=== PATIENT | male | born 1945 | race Caucasian/White ===

== ENCOUNTER 2017-01-21 15:20 | Outpatient (CLI) | payer MEDICARE ==
--- NOTE | 2017-01-21 16:19 | MRI ---
MRI OF LUMBAR SPINE WITHOUT CONTRAST: COMPARISON: None. HISTORY: Low back pain with radiculopathy. Bilateral leg pain radiates to the low back and legs. TECHNIQUE: Multiplanar, multisequence MR images were obtained of the lumbar spine without contrast. FINDINGS: Generalized disk desiccation is seen. There is grade I anterolisthesis of L3 on L4. End plate dege nerative changes are seen surrounding the L3-4 intervertebral disk. The conus medullaris terminates normally at L1. The prevertebral and paraspinal soft tissues are unremarkable. T12-L1: A small disk-osteophyte complex is seen. No posterior facet arthrosis. No neural foramina l or central canal stenosis. L1-2: A small disk-osteophyte complex is seen. Mild to moderate bilateral posterior facet arthrosi s. Mild central canal stenosis. Mild bilateral neural foraminal stenosis. L2-3: A moderate disk-osteophyte complex is seen. Moderate bilateral posterior facet arthrosis. M oderate central canal stenosis. Moderate bilateral neural foraminal stenosis. L3-4: A large disk-osteophyte complex is seen. Severe bilateral posterior facet arthrosis. Severe central canal stenosis. Moderate to severe bilateral neural foraminal stenosis. L4-5: A large disk-osteophyte complex is seen. Mild bilateral posterior facet arthrosis. Moderate central canal stenosis. Moderate bilateral neural foraminal stenosis. L5-S1: A small disk-osteophyte complex is seen. Mild bilateral posterior facet arthrosis. No cent ral canal stenosis. Moderate left and mild right neural foraminal stenosis. IMPRESSION: Degenerative changes of the lumbar spine as above. POS: [facility]
== END 2017-01-21 15:21 | disposition home or self-care (01) ==
LOC: SCSMRI 15:20
PROVIDERS: ATTEND Family Medicine
DX: M47.26 Other spondylosis with radiculopathy, lumbar region (principal)
CPT/HCPCS: 72148

== ENCOUNTER 2017-02-04 17:44 | Emergency (ER) | payer MEDICARE ==
[2017-02-04] MEDS ORDERED: Adacel (T-DAP) 0.5 ML VIAL ONE (18:30)
--- NOTE | 2017-02-04 20:12 | CT ---
CT HEAD WITHOUT IV CONTRAST: Date: 02-04-17 History: Head injury. Comparison: CTA head, 01-06-16. FINDINGS: As noted on the prior exam, there are remote lacunar infarctions involving the basal ganglia bilater ally with greater number of lacunar infarctions on the right, unchanged from prior exam. There is no evidence of an acute cortical infarction, hemorrhage, mass effect, or midline shift. There is ex va cuo dilatation of the anterior horn left lateral ventricle due to remote lacunar infarction in the l eft caudate head. Visualized paranasal sinuses and mastoid air cells are clear. No other interval change. IMPRESSION: 1. No acute intracranial abnormalities demonstrated. 2. Remote lacunar infarctions bilateral basal ganglia including area of prior hemorrhage in the righ t corpus striatum which was noted on prior MRI brain on 12-05-15. POS: [facility]
--- NOTE | 2017-02-09 17:08 | EKG ---
Test Reason : SYNCOPE Blood Pressure : / mmHG Vent. Rate : 075 BPM Atrial Rate : 075 BPM P-R Int : 162 ms QRS Dur : 094 ms QT Int : 404 ms P-R-T Axes : 059 038 029 degrees QTc Int : 451 ms Normal sinus rhythm Normal ECG Confirmed by JEISON HERNANDEZ D.O. ([id number]), advertising editor JESS ABEL ([id number] on 02/09/2017 5:07:40 PM Referred By: MD HERNANDEZ Confirmed By:JEISON HERNANDEZ D.O.
== END 2017-02-04 19:35 | disposition home or self-care (01) ==
LOC: SCSER 17:44
DX: S06.9X9A Unspecified intracranial injury with loss of consciousness of unspecified duration, initial encounter (principal); S01.81XA Laceration without foreign body of other part of head, initial encounter; R55 Syncope and collapse; J45.909 Unspecified asthma, uncomplicated; Z23 Encounter for immunization; W18.30XA Fall on same level, unspecified, initial encounter
CPT/HCPCS: 12013; 70450; 90471; 90715; 93005

== ENCOUNTER 2017-06-14 12:28 | Outpatient (CLI) | payer MEDICARE ==
--- NOTE | 2017-06-14 14:41 | ULT ---
BILATERAL RENAL SONOGRAM: Date: 06/14/17 HISTORY: Renal cyst. Follow-up. COMPARISON: 11/29/16. FINDINGS: Right kidney is 9.7 cm in length. A partially exophytic 1.0 cm cyst projects laterally from the super ior pole and is stable. No hydronephrosis. Left kidney is 10.0 cm. Urinary bladder is unremarkable. IMPRESSION: Stable sonographic appearance of the small right renal cyst. No new abnormalities are demonstrated. POS: [facility]
== END 2017-06-14 12:29 | disposition home or self-care (01) ==
LOC: ULT 12:28
PROVIDERS: ATTEND Family Medicine
DX: N28.89 Other specified disorders of kidney and ureter (principal); N28.1 Cyst of kidney, acquired
CPT/HCPCS: 76770

== ENCOUNTER 2017-09-18 13:56 | Inpatient (IN) | payer MEDICARE ==
[2017-09-18 14:30] LABS: #Basophils 0.1 thou/uL (0.0-0.2); #Eosinphils 0.2 thou/uL (0.0-0.7); #Lymphocytes 1.4 thou/uL (1.20-3.40); #Monocytes 0.4 thou/uL (0.11-0.59); #Neutrophils 2.3 thou/uL (1.40-6.50); %Basophils 1.2 % (0.0-1.0); %Eosinophils 4.4 % (0.0-10.0); %Lymphocytes 31.1 % (21.0-51.0); %Monocytes 9.7 % (0.0-10.0); %Neutrophils 53.6 % (42.0-75.0); Hemoglobin 12.7 g/dL (14.0-18.0); Mean Corpuscular HGB CONC 32.8 g/dL (32.0-36.0); Mean Corpuscular Hemoglobin 29.4 pg (27.0-31.0); Mean Corpuscular Volume 89.5 fl (80.0-94.0); Mean Platelet Volume 6.7 fL (7.4-10.4); Platelet Count 237 thou/uL (130-400); RBC Distribution Width 12.1 % (11.5-14.5); Red Blood Cell (RBC) Count 4.34 mill/uL (4.70-6.10); White Blood Cell (WBC) Count 4.4 thou/uL (4.8-10.8)
[2017-09-18 14:53] LABS: ALT (SGPT) 15 U/L (8-55); AST (SGOT) 16 U/L (5-34); Albumin 4.1 g/dL (3.4-4.8); Alkaline Phosphatase 93 U/L (40-150); Anion Gap 10 mmol/L (10-20); BUN (Urea Nitrogen) 24 mg/dL (8.4-25.7); Bilirubin, Total 0.5 mg/dL (0.2-1.2); Calc. Creatinine Clearance 0 mL/min (70-130); Calcium 9.5 mg/dL (7.8-10.44); Carbon Dioxide 28 mmol/L (23-31); Chloride 106 mmol/L (98-107); Estimated GFR-MDRD 88; Globulin 2.8 g/dL (2.4-3.5); Glucose 100 mg/dL (83-110); Potassium 3.8 mmol/L (3.5-5.1); Protein, Total 6.9 g/dL (5.8-8.1); Sodium 140 mmol/L (136-145)
[2017-09-18 14:57] LABS: Troponin I Less than 0.010 ng/mL (< 0.028)
--- NOTE | 2017-09-18 16:25 | CT ---
CT HEAD WITH AND WITHOUT IV CONTRAST: CT ARTERIOGRAM BRAIN WITH IV CONTRAST AND 3D MIP IMAGING: HISTORY: Altered mental status. Slurred speech. Difficulty writing. COMPARISON: 02/04/2017 FINDINGS: There is no evidence of acute intracranial hemorrhage or infarct. Small areas of old infarct involvi ng the periventricular white matter of each cerebral hemisphere are stable. There is no mass effect, shift of midline structures, or abnormal areas of contrast enhancement. Calcification is apparent w ithin the arterial structures of the brain base. There is good contrast opacification of each internal carotid system and the vertebrobasilar system. The [place] is intact. No focal stenosis or aneurysm is apparent. IMPRESSION: 1. Chronic ischemic small vessel disease appears stable. No acute intracranial abnormalities are de monstrated. 2. Atherosclerosis. POS: [facility]
[2017-09-18 20:03] VITALS: BMI 20.9
[2017-09-18] MEDS ORDERED: Labetalol HCl 100 MG/20 ML VIAL SLOW IVP PRN (21:04)
[2017-09-18] MEDS ORDERED: hydrALAZINE 20 MG/ML VIAL SLOW IVP PRN (21:04)
[2017-09-19 05:12] LABS: Cardiac Risk 6.4 (Less than 4.5)
[2017-09-19] MEDS ORDERED: Prevnar 13-Val Conj/PF 0.5 ML SYRINGE IM ONE (09:00)
[2017-09-19] MEDS ORDERED: Enoxaparin Sodium 30 MG/0.3 ML SYRINGE SC SCH (09:00)
[2017-09-19] MEDS ORDERED: Aspirin 81 mg Enteric Coated Tablet PO SCH ×2 (09:00)
--- NOTE | 2017-09-19 10:28 | ULT ---
CAROTID ULTRASOUND: History: Previous carotid endarterectomy. Questionable stroke. Comparison: None. Technique: Grayscale, color flow, doppler imaging and spectral waveform analysis was performed in the carotid and vertebral arteries. FINDINGS: Right carotid: Intimal thickness of the proximal common carotid artery is 0.14 cm. There is noncalcif ied plaque involving the common carotid arteries, carotid bifurcation and proximal internal carotid a rtery. Peak systolic velocity of the common carotid is 89.9 cm/sec. Peak systolic velocity of the int ernal carotid artery is 84.2 cm/sec. Systolic ICA to CCA is 0.9. Left carotid: Intimal thickness of the proximal common carotid artery is 0.17 cm. There is calcified plaque involving the distal common carotid, carotid bifurcation, and proximal internal carotid artery . There is associated shadowing which limits evaluation. Peak systolic velocity of the common carotid artery is 95.6 cm/sec. Peak systolic velocity of internal carotid is 130.2 cm/sec. Systolic ICA to C CA ratio is 1.4. Antegrade flow in bilateral vertebral arteries. IMPRESSION: Sonographic evidence of moderate (50-69%) stenosis involving the left internal carotid artery. Furthe r evaluation with CT angiogram of the neck is recommended. POS: [facility]
--- NOTE | 2017-09-19 10:53 | MRI ---
BRAIN MRI NONCONTRAST: Date: 09/19/17 Reference made to head CT dated 02/04/17. CLINICAL INDICATION: Stroke. History of carotid endarterectomy. FINDINGS: There is multifocal restriction within the left cerebral hemisphere involving the left caudate nucleu s at the region of the proximal to mid body, as well as involving the left putamen. There is associat ed small area of susceptibility artifact at the posterior left putamen. There is multifocal remote la cunar infarction/dilated perivascular space formation at the bilateral basal ganglia. With regard to component of lacunar infarction, there is chronic hemosiderin staining at the right basal ganglia. Mi ld to moderate chronic microvascular ischemic disease is present involving cerebral white matter. The re is remote lacunar infarction involving right cerebellar hemisphere. IMPRESSION: 1. Small areas of acute infarction centered at the left basal ganglia with associated hemosiderin de position. 2. Mild to moderate chronic microvascular ischemic disease with superimposed remote lacunar infarcti ons and associated hemosiderin staining. POS: [facility]
[2017-09-19 11:52] VITALS: TEMP 97.8
[2017-09-19 15:31] VITALS: BP 116/63
--- NOTE | 2017-09-19 16:46 | PDOC.PN ---
- Subjective Encounter Start Date: 09/19/17 Encounter Start Time: 16:44 Mr. Campos was seen in follow-up of acute CVA. He does not have any complaints this afternoon, and would like to go home. - Objective MAR Reviewed: Yes Vital Signs & Weight: Vital Signs (12 hours) Temp Pulse Resp BP Pulse Ox 09/19/17 15:30 97.8 F 64 16 116/63 96 Result Diagrams: 09/18/17 14:15 09/18/17 14:15 Phys Exam - Physical Examination HEENT: PERRLA Respiratory: no wheezing, no rales, no rhonchi, clear to auscultation bilateral Cardiovascular: RRR, no significant murmur, no rub Gastrointestinal: soft, non-tender, positive bowel sounds Musculoskeletal: no edema Dx/Plan (1) Acute CVA (cerebrovascular accident) Code(s): I63.9 - CEREBRAL INFARCTION, UNSPECIFIED Status: Acute (2) Tobacco abuse Code(s): Z72.0 - TOBACCO USE Status: Acute (3) Dyslipidemia Code(s): E78.5 - HYPERLIPIDEMIA, UNSPECIFIED Status: Acute - Plan * Acute CVA- His symptoms have completely resolved, discussed with patient in detail, including the results of his carotid doppler studies * He would like to have the CTA done as an outpatient * Will increase his dose of aspirin to 325mg a day, and add Lipitor * He can bee follow-up as an outpatient.
--- NOTE | 2017-09-19 20:23 | CON ---
DATE OF CONSULTATION: 09/19/2017 CONSULTING PHYSICIAN: Hospitalist Service. Mr. Campos presented with complaints of slurred speech and right hand clumsiness. MRI subsequently r evealed evidence of a small left basal ganglia infarct and extensive small-vessel ischemic disease wi th some old hemosiderin deposits. His carotid Dopplers showed what was thought to be a moderate sten osis, but CTA did not reveal any significant stenosis. His cholesterol ratio was 6.4. He was taking baby aspirin prior to admission. His symptoms have improved. Plan for discharge is to increase his aspirin to 325 mg. He has been started on Lipitor 40 mg a day. I have suggested he follow up with me in the office.
[2017-09-19] MEDS ORDERED: Atorvastatin Calcium 40 MG TAB PO SCH (21:00)
--- NOTE | 2017-09-20 01:26 | DIS ---
PRIMARY CARE PHYSICIAN: Gerri Mora M.D. DATE OF ADMISSION: 09/18/2017 DATE OF DISCHARGE: 09/19/2017 DISCHARGE DISPOSITION: Home. PRIMARY DISCHARGE DIAGNOSES: 1. Acute left basal ganglia infarct. 2. Hypertension. 3. Dyslipidemia. 4. Tobacco abuse. DISCHARGE MEDICATIONS: Include aspirin 325 mg daily, Lipitor 40 mg at bedtime, Provigil 200 mg daily , and Naprosyn 220 mg twice a day as needed. PROCEDURES DONE DURING THE ADMISSION: The patient had a CT scan of the brain showing some chronic is chemic vessel disease. There were no acute intracranial abnormalities and some arthrosclerosis. The patient also had a CT angiogram of the [place], which was negative for any intracranial int ernal carotid artery disease or aneurysm. The patient also had an MRI of the brain showing some smal l areas of acute infarct in the left basal ganglia, associated with some hemosiderin deposition. The re was some mild to moderate chronic ischemic disease with some remote lacunar infarcts. The patient had bilateral carotid Doppler showing some sonographic evidence of moderate 50% to 69% stenosis invo lving the left internal carotid artery and is recommending further evaluation with a CT angiogram. CODE STATUS: FULL CODE. ALLERGIES: PENICILLIN. HOSPITAL COURSE: Mr. Campos is a pleasant 72-year-old gentleman, who presented initially to [facility] complaining of decreased ability to write with his right hand and friends noted some slurr ing of his speech. He was placed in observation and was evaluated. He had a cholesterol level drawn showing a total cholesterol of 224 and LDL of 167, HDL of 35. He also is a smoker. His symptoms ar e resolved during the course of his admission. Despite the ultrasound findings of a possible stenosi s, he preferred to be discharged home and have this evaluated as an outpatient. He has had a carotid endarterectomy on the opposite side on the right and says he had an appointment already scheduled fo alysha Morales and he will discuss this with him and have this further evaluated. I told him he does ne ed to see about this urgently. However, in the meantime, we will change his aspirin to a full dose t o 325 mg daily and he will be started on Lipitor, which has already been done here in the hospital an d he was advised to stop smoking and therefore, he will be discharged home today with close outpatien t followup.
== END 2017-09-19 17:42 | disposition home or self-care (01) | DRG 66 ==
LOC: ERS 13:56 → 2SE 17:42 → OBSVTOIN 09-19 13:33
PROVIDERS: ADMIT Internal Medicine Infectious Disease; ATTEND Internal Medicine Infectious Disease
DX: I63.9 Cerebral infarction, unspecified (principal); I10 Essential (primary) hypertension; E78.5 Hyperlipidemia, unspecified; F17.210 Nicotine dependence, cigarettes, uncomplicated; R47.81 Slurred speech
CPT/HCPCS: 36415; 36416; 70450; 70496; 70551; 80053; 80061; 82553; 84484; 85025; 90471; 90670; 93005; 93880; G0009; G8978-GP-CL; G8979-GP-CL; G8980-GP-CL; G8987-GO-CJ; G8988-GO-CI; G8996-GN-CH; G8997-GN-CH; J1650

== ENCOUNTER 2017-10-09 15:10 | Outpatient (CLI) | payer MEDICARE ==
--- NOTE | 2017-10-09 18:54 | MRI ---
MRI CERVICAL SPINE: 10/09/17 Multiplanar and multisequential images of the cervical spine obtained without IV contrast. 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 There is motion artifact which degrades all sequences. The axial sequences are particularly degraded. The cervical vertebrae maintain height and alignment. Degenerative changes are seen in the cervical s pine with loss of disc space, hypertrophic spurring from the anterior cervical vertebrae and posterio r disc bulge and spondylosis at all levels. Mild disc bulge and spondylosis at C2-3, C3-4, and C4-5. The changes at all these levels flatten thec al sac and efface the anterior subarachnoid space. Mild foraminal encroachment at these levels due to facet and uncinate hypertrophy. At C5-6, disc bulge and spondylosis is more prominent abutting the anterior cord. mild left foraminal narrowing due to facet and uncinate hypertrophy. At C6-7, disc bulge and spondylosis flatten the thecal sac and mildly efface anterior subarachnoid sp lakisha but do not impinge on the cord. There is mild right foraminal narrowing due to facet and uncinate hypertrophy. On the two view sagittal images there is diffuse heterogeneous signal seen throughout the cervical co rd and extending up into the edin. When comparison made to MRI of brain of 09/19/17, there is some het erogeneous signal in the edin, probably chronic ischemic change. The signal in the cord is indeterminate. The motion artifact degrades the exam and this cord signal m ay be artifactual. It is not well correlated on the axial images; however, axial images also show sig nificant motion artifact. IMPRESSION: 1. There is degenerative change and spondylosis in the cervical spine from C2 through C7 as desc ribed above. 2. Abnormal heterogeneous signal in the cord on T2 sagittal images is felt most likely to be art ifactual from motion artifact. However, I cannot exclude cord abnormality on these images. Recommend clinical correlation. If there are clinical signs of myelopathy, recommend patient be returned for MR I cervical spine with and without contrast with anesthesia if necessary to prevent motion artifact. Dr. Adamson also reviewed the exam and is in agreement with this recommendation. POS: [facility]
== END 2017-10-09 15:11 | disposition home or self-care (01) ==
LOC: SCSMRI 15:10
PROVIDERS: ATTEND Family Medicine
DX: M47.892 Other spondylosis, cervical region (principal); R55 Syncope and collapse
CPT/HCPCS: 72141

== ENCOUNTER 2017-11-26 07:47 | Outpatient (CLI) | payer MEDICARE ==
--- NOTE | 2017-11-26 10:03 | CT ---
CT CHEST NONCONTRAST PULMONARY LUNG SCAN LOW DOSE: HISTORY: Lung nodule screening. COMPARISON: 11/16/2016 FINDINGS: The lungs remain hyperinflated. Linear scarring at the right lateral costophrenic angle is stable. The tiny ground glass subpleural nodule within the right middle lobe is less conspicuous on today's s tudy than on the previous exam. No new lung nodules. Peripheral interstitial thickening is mild and similar in appearance to the previous exam. Scattered subpleural bullae are stable. No pleural fluid, Lack of contrast limits evaluation of the soft tissues. No bulky mediastinal adenopathy. Upper limi ts of normal size precarinal lymph node is stable. there is prominent calcification within the arter ial structures, including the coronary arteries and the renal arteries, within the partially visualiz ed upper abdomen. IMPRESSION: 1. Lung-RADS category 1-Negative. Suggest continued routine screening. 2. Chronic obstructive pulmonary disease. 3. Atherosclerosis. POS: [facility]
== END 2017-11-26 07:48 | disposition home or self-care (01) ==
LOC: CT 07:47
PROVIDERS: ATTEND Family Medicine
DX: F17.210 Nicotine dependence, cigarettes, uncomplicated (principal); J44.9 Chronic obstructive pulmonary disease, unspecified; I25.10 Atherosclerotic heart disease of native coronary artery without angina pectoris; I12.9 Hypertensive chronic kidney disease with stage 1 through stage 4 chronic kidney disease, or unspecified chronic kidney disease; N18.9 Chronic kidney disease, unspecified
CPT/HCPCS: G0297

== ENCOUNTER 2017-11-29 08:11 | Outpatient (CLI) | payer MEDICARE ==
--- NOTE | 2017-11-29 11:48 | CT ---
CT ARTERIORGRAM NECK WITH IV CONTRAST AND 3D MIP IMAGING: HISTORY: Vascular disease. Carotid stenosis. Prior right endarterectomy. FINDINGS: Emphysematous changes of the lungs are apparent at the apices. There is calcification in the aortic arch with normal branching of the great vessels. Good flow into each carotid and vertebral system. The right carotid bifurcation is patent. Postoperative changes, consistent with prior right carotid endarterectomy. No significant plaque or stenosis is evident. Plaque is present at the left carotid bifurcation with the internal and external carotid arteries pat ent. Less than 50% stenosis within the proximal to mid left cervical internal carotid artery. IMPRESSION: 1. Atherosclerosis. Prior right endarterectomy with widely patent system. 2. Atherosclerosis with less than 50% stenosis, proximal to mid left cervical internal carotid arter y. POS: [facility]
== END 2017-11-29 08:12 | disposition home or self-care (01) ==
LOC: CT 08:11
PROVIDERS: ATTEND Thoracic Surgery (Cardiothoracic Vascular Surgery)
DX: I65.23 Occlusion and stenosis of bilateral carotid arteries (principal); I70.90 Unspecified atherosclerosis; Z98.890 Other specified postprocedural states
CPT/HCPCS: 70498